=== PATIENT | female | born 2005 | race Caucasian/White ===

== ENCOUNTER → 2024-08-18 | Outpatient (CLI) | payer MEDICAID, SELFPAY ==
--- NOTE | 2024-08-18 17:36 | CT_ITS ---
PROCEDURE: ABDOMEN/PELVIS WITH CONTRAST REASON FOR EXAM: LOWER ABDOMEN PAIN. Sharp abdominal pain. Vaginal bleeding. TECHNIQUE: Abdomen and pelvis CT with intravenous contrast. Oral contrast was also used. IV CONTRAST: 100 cc of [id number]. COMPARISON: None. FINDINGS: Lung bases: Clear Liver: Unremarkable. Gallbladder: Unremarkable. Spleen: Unremarkable. Pancreas: Unremarkable. Adrenals: Unremarkable. Kidneys: Unremarkable. Bladder: Unremarkable. Reproductive Organs: There is a 6.6 cm x 6.9 cm x 5.5 cm cystic mass in the left adnexa. Low-level density are seen along the dependent portion. This may represent blood. Endometrioma should be ruled out. Pelvic sonogram correlation recommended. Small amount of free fluid in the cul-de-sac. Bowel: Unremarkable. Appendix: Normal. Lymph nodes: No suspicious lymph node enlargement. Vasculature: Major vascular structures are unremarkable. Peritoneum / Retroperitoneum: No ascites. No free air. Bones: Unremarkable. CT/Abdomen/Pelvis WITH Contrast IMPRESSION: 6.6 cm x 6.9 cm x 5.5 cm cystic mass in the left adnexa with low-level densitie s along the dependent portion. This is suggestive of possible endometrioma. Sonographic correlation recommended. Small amount of free fluid is seen in the cul-de-sac. One or more dose reduction techniques were used (e.g., Automated exposure contr ol, adjustment of the mA and/or kV according to patient size, use of iterative reconstruction technique). Reading Location: [place] [id number]
== END | disposition home or self-care (01) ==
LOC: CT 17:34
DX: R10.30 Lower abdominal pain, unspecified (principal)
CPT/HCPCS: 74177; Q9967

== ENCOUNTER 2024-09-01 14:19 | Emergency (ER) | payer MEDICAID, SELFPAY ==
[2024-09-01 14:20] VITALS: BP 117/71; PULSE 93; RESP 17; TEMP 36.4; O2SAT 100; BMI 18.4
--- NOTE | 2024-09-01 14:51 | US_ITS ---
PROCEDURE: PELVIC (NON ) 09/01/2024 REASON FOR EXAM: 19-year-old female, r/O OVARIAN TORSION TECHNIQUE: Transabdominal pelvic ultrasound. Color doppler analysis of the ovaries. COMPARISON: CT abdomen pelvis 08/18/2024. FINDINGS: Measurements: Uterus: 9.6 x 4.1 x 4.0 cm with a volume of 82 mL Endometrial Thickness: 1.0 cm Right Ovary: 3.0 x 2.2 x 3.1 cm with a volume of 10.7 mL. Left Ovary: 8.7 x 7.0 x 7.4 cm with a volume of 236 mL. TRANSABDOMINAL: Uterus: Normal size, myometrial echotexture, and contour. Endometrium: Unremarkable. Right ovary: Normal size and echotexture. Left ovary: Large, complex layering cyst measuring 6.7 x 5.8 x 5.2 cm with small area of anechogenicity. No large pelvic mass identified. Trace free pelvic fluid, within physiologic normal limits. DOPPLER: Color Doppler: Normal color flow doppler signal at both ovaries. US/Pelvic (Non ) IMPRESSION: 1. No ultrasound evidence of ovarian torsion. 2. Stable large complex left ovarian lesion, most compatible with endometrioma. Additional considerations include hemorrhagic cyst or corpus luteum. Consultation with outpatient gynecology is recommended. Reading Location: [id number]
--- NOTE | 2024-09-01 14:51 | CT_ITS ---
EXAM: CT abdomen/pelvis without IV contrast dated September 01, 2024. CLINICAL HISTORY: Abdominal pain. COMPARISON: CT of the abdomen and pelvis dated 08/18/2024. TECHNIQUE: CT of the abdomen and pelvis was performed after IV contrast was administered. Multiplanar reformats were obtained afterwards. FINDINGS: The lung bases are clear. There is no free air within the abdomen and pelvis. The liver, gallbladder, spleen, adrenals, pancreas, kidneys are within normal limits. Urinary bladder demonstrates wall enhancement, which is nonspecific. 6.3 x 6.8 cm left adnexa cystic structure is noted. Since prior examination. There has been increase in the amount of complex free fluid within the deep pelvis. The fluid now extends posteriorly into the cul-de-sac and presacral area. This is best seen on image 100/130. Extensive sigmoid diverticulosis is noted, which is somewhat advanced for patient's age. A normal appendix is not identified. No acute osseous abnormalities are present. CT/Abdomen/Pelvis W IV Cont ONLY IMPRESSION: Large complex free fluid is now seen within the deep pelvis. This is significa ntly increased in size when compared to prior examination dating back to August 18 2024. These findings could represent rec ently ruptured cyst versus ruptured appendix versus other etiologies. Recommend OBGYN and general surgery consultation. Co rrelation with beta HCG, WBC on other laboratory analysis is also suggested. Advanced diverticular disease. Diverticulitis with associated peridiverticular abscess can not be ruled out. Left adnexa complex cyst remains. Other findings as above. Reading Location: [id number]
--- NOTE | 2024-09-01 14:52 | EX.ED.DYSGE1 ---
HPI History of Present Illness Chief Complaint: Abd Pain Narrative Narrative: Chief complaint and HPI: Abdominal pain. 19-year-old female with no significant past medical history presents for evaluation of abdominal pain. Patient states earlier this month she was having abdominal pain. She states she had a CT abdomen pelvis that showed a left ovarian cyst. She is scheduled to see [facility] at [facility] in October. Patient states her pain improved but over the last 2 days has worsened. She describes it as diffuse. Associated symptom is nausea. She denies any fever, chills, chest pain, shortness of breath, emesis, dysuria, urinary frequency, diarrhea, constipation. Patient states she is not sexually active. Her last menstrual cycle was 2 weeks ago. Patient states that they called the [facility] office and they told her to present to the emergency department. Patient states that bumps on the ride over here worsened the pain. Patient last ate yesterday. Review of systems: See HPI Medications: As listed on the chart Allergies: As listed on the chart PFSH: Per chart Vital signs: As listed on the chart. Reviewed. Physical exam: Gen: A&O x3, NAD Head: Normocephalic, atraumatic Eyes: No sclera icterus, conjunctiva clear ENT: Moist mucous membranes Neck: Trachea midline, No JVD CV: RRR, no murmurs, no peripheral edema Resp: Lungs CTA BL, no w/r/c GI: Abd soft, non-distended, tender to palpation in the right lower quadrant, + McBurney's point, mild tenderness in the suprapubic region, no rebound or rigidity : No CVA tenderness Musc: Full ROM, no deformity Skin: Warm, dry Neuro: Alert, oriented, grossly intact, sensation intact Psych: Cooperative, appropriate mood and affect [facility] Medical History GERD (gastroesophageal reflux disease) GI problem Emotional problems Back problem Anemia Allergies Home Medications ?Medication ?Instructions ?Recorded ?Last Taken ?Type biotin 800 mcg tablet 800 mcg PO QDAY 05/13/24 Unknown History hydroxyzine HCl 25 mg tablet 25 mg PO BID PRN anxiety #30 tabs 05/13/24 Unknown Rx escitalopram oxalate 10 mg tablet 10 mg PO DAILY #90 tabs 09/01/24 Unknown Rx Allergy/AdvReac Type Severity Reaction Status Date / Time Penicillins Allergy Mild Rash Verified 09/01/24 14:59 Family History Other Anemia Anxiety Arthritis Asthma Colon cancer Depression Diabetes Hypertension Mental disorder Severe allergy Surgical History Hx of breast biopsy Social History Smoking Status: Never smoker alcohol intake: never substance use type: does not use what type of physical activity do you participate in: other details: dance 4days a week EXAM Physical Exam Const Vital Signs: 09/01/24 14:20 09/01/24 16:19 09/01/24 18:41 Temperature 97.5 F L Temperature Source Temporal Pulse Rate 93 80 86 Respiratory Rate 17 16 16 Blood Pressure 117/71 108/59 L 105/58 L Blood Pressure Mean 86 75 73 Pulse Ox 100 100 99 Oxygen Delivery Method Room Air Room Air Room Air 09/01/24 18:41 Temperature 97.4 F L Temperature Source Pulse Rate 86 Respiratory Rate 16 Blood Pressure 105/58 L Blood Pressure Mean 73 Pulse Ox 99 Oxygen Delivery Method MDM MDM MDM Narrative Medical decision making narrative: 19-year-old female with no significant past medical history presents for evaluation of abdominal pain. Differential diagnosis includes but is not limited to acute appendicitis, ovarian torsion, UTI, viral illness, pancreatitis, constipation. On chart review, patient had a CT abdomen pelvis on 08/18. She had a 6 x 6 x 5 cm cystic mass in the left adnexa suggestive of possible endometrioma. NS bolus, morphine, Zofran ordered for symptoms. Laboratory workup ordered including CT abdomen pelvis as well as pelvic ultrasound to assess for ovarian torsion. CBC without leukocytosis or anemia. CMP unremarkable without ALDO, transaminitis. Lipase unremarkable. Serum negative. UA negative for UTI. Ultrasound negative for ovarian torsion. Patient has stable large complex left ovarian cyst, most compatible with endometrioma. CT abdomen pelvis shows large complex free fluid now seen within the deep pelvis. Significantly increased in size when compared to prior examination. Findings could represent recently ruptured cyst versus ruptured appendix. Appendix is not identified. There is extensive sigmoid diverticulosis. Given CT abdomen pelvis findings and patient being tender in the right lower quadrant on physical exam, general surgery Dr. Bravo was consulted. He will review the imaging and asked me to discuss the case with [facility]. I spoke with [facility] dye automation operator and she recommends me talking to the attending, Dr. Mancilla. While waiting for Dr. Mancilla. Dr. Bravo call back. He reviewed the imaging. Suspect likely cyst rupture given her history of large left adnexal cyst. Although appendix not seen, appendix was normal on previous CT abdomen and pelvis. Patient's labs are not consistent with acute appendicitis. He recommends me reaching out to [facility]. If [facility] does not feel that this is cystic in nature, recommends repeat CT abdomen pelvis with p.o. contrast to better visualize the appendix. I spoke with Dr. Mancilla. I informed him of the recommendations and opinion of Dr. Bravo. He states that if the appendix does not appear to be the source by general surgery, he agrees that this could be cystic in nature. Plan is for patient to call [facility] tomorrow to be seen in the office next week. On reexamination, patient's pain is improved however she is shirring tender in the right lower quadrant. I explained all the findings to the patient as well as her mother. I informed them of Dr. Bravo and Dr. Mancilla's recommendations. Patient and mother comfortable with discharging home. Tylenol and Motrin as needed for pain. Strict return precautions. Impression: 1. Abdominal pain 2. Left adnexa cystic mass, suggestive of endometrioma Lab Data Labs: Laboratory Results - last 24 hr 09/01/24 09/01/24 14:54 16:14 WBC 9.1 RBC 3.92 L Hgb 12.2 Hct 35.0 L MCV 89.3 MCH 31.1 MCHC 34.9 RDW Std Deviation 37.9 RDW Coeff of Krysten 11.7 Plt Count 229 MPV 9.2 Immature Gran % (Auto) 0.200 Neut % (Auto) 78.5 H Lymph % (Auto) 12.4 L [place] % (Auto) 8.2 Eos % (Auto) 0.5 Baso % (Auto) 0.2 Absolute Neuts (auto) 7.2 Absolute Lymphs (auto) 1.13 Nucleated RBC % 0 Sodium 137 Potassium 3.6 Chloride 106 Carbon Dioxide 21.4 Anion Gap 10 BUN 6 Creatinine 0.50 L Estim Creat Clear Calc 164.09 Est GFR (MDRD) Non-Af 137 BUN/Creatinine Ratio 13.0 Glucose 96 Calcium 8.6 Total Bilirubin 1.18 AST 21 ALT 10 Alkaline Phosphatase 59 Total Protein 7.1 Albumin 4.2 Globulin 2.9 Albumin/Globulin Ratio 1.4 Lipase 14 Serum , Qual NEGATIVE Urine Color Yellow Urine Clarity Clear Urine pH 6.5 Ur Specific [place] 1.010 Urine Protein 15 H Urine Glucose (UA) Normal Urine Ketones 5 H Urine Occult Blood 10 H Urine Nitrite Negative Urine Bilirubin Negative Urine Urobilinogen Normal Ur Leukocyte Esterase Negative Urine RBC 0-5 SEEN Urine WBC 0-5 SEEN Ur Squamous Epith Cells 0-5 SEEN Urine Bacteria 1+ Urine Mucus 0 SEEN Radiography Diagnostic Testing: Clinical Impression(s) from Imaging Studies Abdomen/Pelvis CT 09/01/24 14:51 IMPRESSION: Large complex free fluid is now seen within the deep pelvis. This is significantly increased in size when compared to prior examination dating back to August 18 2024. These findings could represent recently ruptured cyst versus ruptured appendix versus other etiologies. Recommend OBGYN and general surgery consultation. Correlation with beta HCG, WBC on other laboratory analysis is also suggested. Advanced diverticular disease. Diverticulitis with associated peridiverticular abscess can not be ruled out. Left adnexa complex cyst remains. Other findings as above. Reading Location: [facility] Pelvis Ultrasound 09/01/24 14:51 IMPRESSION: 1. No ultrasound evidence of ovarian torsion. 2. Stable large complex left ovarian lesion, most compatible with endometrioma. Additional considerations include hemorrhagic cyst or corpus luteum. Consultation with outpatient gynecology is recommended. Reading Location: [facility] Discharge Plan Triage Chief Complaint: Abd Pain ED Provider: Abebe Montgomery Dx/Rx/DC Orders Clinical Impression: Abdominal pain Instructions: ED Abdominal Pain Unkn Cause Fem Prescriptions: No Action biotin 800 mcg tablet 800 mcg PO QDAY hydroxyzine HCl 25 mg tablet 25 mg PO BID PRN (Reason: anxiety) Qty: 30 0RF escitalopram oxalate 10 mg tablet 10 mg PO DAILY Qty: 90 1RF Primary Care Provider: Radha Lawson Referrals: Too Mancilla MD [Med Staff - Active Staff] - 3-5 Days Radha Lawson PA [Primary Care Provider] - 3-5 Days Activity Restrictions/Additional Instructions: Return back to the ED if symptoms change or worsen. Follow-up with [facility]. Call the office tomorrow and let them know that you need to be seen either later this week or early next week. Tylenol and Motrin as needed for pain. Print Language: Serbian Disposition Disposition: Home, Self Care Discharge Date/Time: 09/01/24 19:00
[2024-09-01] MEDS: 0.9% Normal Saline (1000mL) 1,000 ML 999 ML IV (15:04)
[2024-09-01] MEDS: Morphine 2 MG/ML Syringe IV (15:04)
[2024-09-01] MEDS: Ondansetron 4 MG/2 ML Vial IV (15:04)
[2024-09-01 15:15] LABS: Absolute Lymphocyte Count 1.13 X10^3/uL (0.83-4.51); Absolute Neutrophil Count 7.2 X10^3/uL (2.0-7.7); Basophil# 0.02 X10^3/uL; Basophil% 0.2 % (0-1); Eosinophil# 0.05 X10^3/uL; Eosinophils% 0.5 % (0-5); Hemoglobin 12.2 g/dL (12.0-15.0); Lymphocyte # 1.13 X10^3/ul (0.83-4.51); Lymphocyte % 12.4 % (19-41); Mean Corp Hgb Conc 34.9 g/dL (32-36); Mean Corpuscular Hgb 31.1 pg (27.0-32.0); Mean Corpuscular Volume 89.3 fL (81-99); Mean Platelet Vol. 9.2 fl (6.2-12.0); Monocyte# 0.75 X10^3/uL; Monocyte% 8.2 % (0-10); NRBC Flagged by Analyzer 0 % (0-5); Neutrophil # 7.16 X10^3/uL (2.7-7.7); Neutrophil % 78.5 % (47-70); Platelet Count 229 K/mm3 (150-450); RBC Distribution Width CV 11.7 % (11.6-14.6); RBC Distribution Width SD 37.9 fl (35.1-43.9); Red Blood Count 3.92 M/mm3 (4.2-5.4); White Blood Count 9.1 K/mm3 (4.4-11.0)
[2024-09-01 15:44] LABS: Lipase 14 U/L (13-75)
[2024-09-01 16:09] LABS: Internal QC Validated? YES +Cl - CLEAR BKGD; Pregnancy, Serum, hCG Quali. NEGATIVE Negative
[2024-09-01 16:10] LABS: ALB/GLOB Ratio 1.4 RATIO (0.9-2.4); AST(SGOT) 21 U/L (<=31); Alanine Aminotransfer ALT/SGPT 10 U/L (<=34); Albumin, Serum 4.2 g/dL (3.5-5.0); Alkaline Phosphatase 59 U/L (35-104); Anion Gap 10 (5-15); Calcium,Total 8.6 mg/dL (7.6-11.0); Carbon Dioxide 21.4 mmol/L (21.0-32.0); Chloride 106 mmol/L (98-108); EST Glomerular Filtration Rate 137 (>60); Estimated Creatinine Clearance 164.09 ml/min (50-250); Globulin 2.9 g/dL (2.2-4.2); Glucose 96 mg/dL (70-99); Potassium 3.6 mmol/L (3.3-5.1); Protein, Total 7.1 g/dL (5.9-8.4); Sodium Level 137 mmol/L (133-145); Total Bilirubin 1.18 mg/dL (0.00-1.30)
[2024-09-01 16:19] VITALS: BP 108/59; PULSE 80; RESP 16; O2SAT 100
[2024-09-01 16:24] LABS: BUN 6 mg/dL (4-19)
[2024-09-01 16:34] LABS: Mucous, Urine 0 SEEN /hpf (<or=2+)
[2024-09-01 16:41] LABS: Color, Urine Yellow (Yellow); Glucose, Dipstick Normal (Normal); Ketone-Dipstick 5 mg/dl (Negative); Leukocyte Esterase-Dipstick Negative /ul (Negative); Nitrite-Dipstick Negative (Negative); Occult Blood-Urine 10 /ul (Negative); Protein-Dipstick 15 mg/dl (Negative); Urine Bilirubin Dipstick Negative (Negative); Urine Clarity Clear (Clear); Urine Urobilinogen Normal (Normal); Urine pH 6.5 (5.0 - 8.0)
[2024-09-01 16:47] LABS: Bacteria 1+ /hpf (None Seen); Red Blood Cells-Urine 0-5 SEEN /hpf (0-5); Squamous Epithelial Cells - UA 0-5 SEEN /hpf (5-10); White Blood Cells 0-5 SEEN /hpf (0-5)
[2024-09-01 18:41] VITALS: BP 105/58; PULSE 86; RESP 16; TEMP 36.3; O2SAT 99
== END 2024-09-01 19:00 | disposition home or self-care (01) ==
PROVIDERS: Emergency Provider Surgery; Visit Provider Surgery
DX: R10.9 Unspecified abdominal pain (principal)
CPT/HCPCS: 74177; 76856; 80053; 81001; 83690; 84703; 85025; 96361; 96374; 96375; 96376; 99283; Q9967; J2405

== ENCOUNTER → 2024-09-10 | Outpatient (CLI) | payer MEDICAID, SELFPAY ==
[2024-09-16 08:06] LABS: HPV Reflexed? NOT INDICATED
== END | disposition home or self-care (01) ==
LOC: LABSPEC 16:44
PROVIDERS: Referring Provider Obstetrics & Gynecology; Visit Provider Obstetrics & Gynecology
DX: Z12.4 Encounter for screening for malignant neoplasm of cervix (principal)
CPT/HCPCS: 88175; G0145

== ENCOUNTER → 2024-09-14 | Outpatient (CLI) | payer MEDICAID, SELFPAY ==
--- NOTE | 2024-09-14 13:09 | US_ITS ---
PROCEDURE: Pelvic ultrasound, transabdominal only 09/14/2024 REASON FOR EXAM: Follow-up left ovarian cyst TECHNIQUE: Transabdominal ultrasound evaluation of the female pelvis. COMPARISON: CT abdomen/pelvis and pelvic ultrasound 09/01/2024. FINDINGS: Included portions of the urinary bladder show no specific abnormality. The uterus appears anteverted measuring 9.6 x 4.1 x 4.0 cm. No discrete uterine myometrial or cervical mass is demonstrated. The endometrium is measured at 1.1 cm in thickness. The right ovary is 3.0 x 2.2 x 3.1 cm minimally complex 2 cm right ovarian follicle. There is blood flow in the right ovary on Doppler evaluation. The left ovary is measured at 6.5 x 7.5 x 7.3 cm. Within the left ovary is a complex cystic mass measuring up to 6.4 cm. There appears to be blood flow at the periphery of the left ovary. US/Pelvic (Non ) IMPRESSION: Complex 6.4 cm cystic mass of the left ovary is not significantly changed in si ze from the 09/01/2024 study. Differential possibilities would include an endometrioma or complex hemorrhagic cyst. Malig davon or neoplasm would be difficult to entirely exclude. Nonemergent surgical consultation is suggested. No free pelvic fluid. 2 cm right ovarian follicle. No evidence of ovarian torsion. Unremarkable sonographic appearance of the uterus. Reading Location[facility]
== END | disposition home or self-care (01) ==
LOC: US 13:07
PROVIDERS: Referring Provider Obstetrics & Gynecology; Visit Provider Obstetrics & Gynecology
DX: N83.209 Unspecified ovarian cyst, unspecified side (principal)
CPT/HCPCS: 76856

== ENCOUNTER → 2024-11-04 | Outpatient (CLI) | payer MEDICAID, SELFPAY ==
--- NOTE | 2024-11-04 16:39 | US_ITS ---
PROCEDURE: PELVIC (NON ) 11/04/2024 REASON FOR EXAM: MONITOR ENDOMETRIOMA TECHNIQUE: Transabdominal pelvic ultrasound COMPARISON: Prior study dated September 14, 2024. FINDINGS: LMP: October 14, 2024. Measurements: Uterus: 7.5 cm x 6 cm x 4.1 cm with a volume of 96.77 mL Endometrial Thickness: 12.3 mm. It is hyperechoic. Right Ovary: 2.9 cm x 2.4 cm x 1.3 cm with a volume of 4.61 mL. Left Ovary: There is an 8.1 cm 5.7 cm 5.8 cm complex solid and cystic mass in the left adnexa as previously seen. This has increased in size as compared to prior study. Uterus: Normal size, myometrial echotexture, and contour. Endometrium: Unremarkable. Right ovary: Normal size and echotexture. Left ovary: Increase in size of the previously seen complex mass in the left adnexa as described. Other: Small amount of free fluid in the cul-de-sac. US/Pelvic (Non ) IMPRESSION: Increase in size of the complex cystic mass in the left adnexa as described. Reading Location: [facility]
== END | disposition home or self-care (01) ==
LOC: US 16:08
PROVIDERS: Referring Provider Obstetrics & Gynecology; Visit Provider Obstetrics & Gynecology
DX: N80.129 Deep endometriosis of ovary, unspecified ovary (principal)
CPT/HCPCS: 76856

== ENCOUNTER → 2024-12-30 | Outpatient (CLI) | payer MEDICAID, SELFPAY ==
--- NOTE | 2024-12-30 13:04 | US_ITS ---
PROCEDURE: PELVIC (NON ) 12/30/2024 REASON FOR EXAM: LEFT OVARIAN CYST TECHNIQUE: PELVIC (NON ). Transabdominal grayscale, color and spectral Doppler pelvic ultrasound. COMPARISON: 11/04/2024 FINDINGS: ENDOMETRIUM: Homogeneous. Normal thickness of 11.2 mm. No abnormal endometrial color Doppler flow. UTERUS: Anteverted. Normal size and contour measuring 7.3 x 5.3 x 3.7 cm. No fibroid detected. CERVIX: Normal size and contour. RIGHT OVARY: Enlarged measuring 6.4 x 4.8 x 5.1 cm with a volume of 80.4 mL. Nonvascular complex cystic structure measuring 5.3 x 4.2 x 4.3 cm with internal echoes. Normal blood flow. No adnexal mass. LEFT OVARY: A normal ovary is not seen. Cystic left adnexal structure measuring 11.1 x 8.8 x 9.5 cm with homogeneous low-level internal echoes. This previously measured 5.7 x 8.1 x 5.8 cm. FREE FLUID: No free fluid. US/Pelvic (Non ) IMPRESSION: 1. Interval enlargement of the now 11.1 cm complex left adnexal cystic lesion, likely a hemorrhagic cyst or endometrioma. O-RADS US 3 - Low risk malignancy (1 to <10% risk of malignancy). Ultrasound s pecialist or MRI and management by heat treater helper recommended.. 2. Complex 5.3 cm right ovarian cyst, likely a hemorrhagic cyst, new since the prior study. O-RADS US 2 - Almost certainly benign category (<1% risk of malignancy). Follow-up imaging in 8-12 weeks is r ecommended to evaluate for resolution. Reading Location: [id number]
== END | disposition home or self-care (01) ==
LOC: US 12:59
PROVIDERS: Referring Provider Obstetrics & Gynecology; Visit Provider Obstetrics & Gynecology
DX: N83.202 Unspecified ovarian cyst, left side (principal)
CPT/HCPCS: 76856

== ENCOUNTER 2025-01-05 13:05 | Emergency (ER) | payer MEDICAID, SELFPAY ==
[2025-01-05 13:06] VITALS: BP 104/68; PULSE 89; RESP 16; TEMP 37; O2SAT 98; BMI 18.4
--- NOTE | 2025-01-05 13:35 | US_ITS ---
PROCEDURE: PELVIC (NON ) 01/05/2025 REASON FOR EXAM: HISTORY OF LARGE OVARIAN CYST, LEFT TECHNIQUE: PELVIC (NON ) COMPARISON: January 01, 2025. FINDINGS: LMP: January 05, 2025. Measurements: Uterus: 7.5 cm x 3.6 cm x 3.9 cm with a volume of 54 point 15 mL Endometrial Thickness: 6.7 mm. It is hyperechoic. Right Ovary: 4.5 cm x 3 cm x 3.7 cm with a volume of 25.23 mL. Left Ovary: 10.6 cm x 9.2 cm x 9.6 cm with a volume of 489.90 mL. Uterus: Normal size, myometrial echotexture, and contour. Endometrium: Unremarkable. Right ovary: There is a 3.3 cm 2.5 cm 3.3 cm right ovarian cyst. Left ovary: Persistent 9.8 cm x 8.7 cm 9 cm complex cyst with a fluid level in the left ovary. This may represent either hemorrhagic cyst or endometrioma. Other: Doppler flow is seen in both ovaries. US/Pelvic (Non ) IMPRESSION: Persistent 9.8 cm x 8.7 cm by 9 cm complex cyst suggestive of either hemorrhagi c cyst or endometrioma in the left ovary. Small right ovarian cyst. Reading Location: [facility]
--- NOTE | 2025-01-05 13:36 | EX.ED.DYSGE1 ---
HPI History of Present Illness Chief Complaint: Abd Pain Narrative Narrative: 19-year-old female history of known 11 cm left ovarian cyst and an ovarian cyst on her right ovary presents with pelvic pain. She states that she was post have an appointment with the ENVIRONMENTAL PROJECTS ADVISOR at [facility] today to see about scheduling a surgery. She started her menses today. It is regular flow. However, she is having increasing pelvic pain. She states that the medication she was given, naproxen, is ineffective in treating her pain. She last took it an hour ago. She is having increasing pain but denies any exacerbating or alleviating factors other than it is better when she stands still. [facility] Medical History GERD (gastroesophageal reflux disease) GI problem Emotional problems Back problem Anemia Allergies Home Medications ?Medication ?Instructions ?Recorded ?Last Taken ?Type biotin 800 mcg tablet 800 mcg PO QDAY 05/13/24 01/04/25 History naproxen 500 mg tablet 500 mg PO BID PRN pain #30 tabs 09/10/24 01/05/25 Rx escitalopram oxalate 10 mg tablet 10 mg PO DAILY #90 tabs 12/02/24 01/04/25 Rx hydroxyzine HCl 25 mg tablet 25 mg PO BID PRN anxiety #30 tabs 12/02/24 Unknown Rx oxycodone-acetaminophen 5 mg-325 1 tab PO Q6H 3 days #12 tabs 01/05/25 Unknown Rx mg tablet (Percocet) Allergy/AdvReac Type Severity Reaction Status Date / Time Penicillins Allergy Mild Rash Verified 01/05/25 13:08 Surgical History Hx of breast biopsy Social History Smoking Status: Never smoker alcohol intake: current details: occasionally substance use type: does not use caffeine: Yes what type of physical activity do you participate in: other details: dance 4days a week frequency: 1-2 times per week seatbelt use: always do you feel safe at home: Yes additional social history: Single ROS ROS ED ROS Narrative Review of systems positive for pelvic pain, left greater than right. History of ovarian cysts, the larger being 11 cm on the left. No fevers or chills, no nausea or vomiting. Positive vaginal bleeding consistent with menses today, no vaginal discharge. Not sexually active. EXAM Physical Exam Narrative Exam Narrative: Afebrile. Vital signs noted. Nontoxic-appearing. Cardiovascular examination reveals regular rate and rhythm. Lungs are clear to auscultation bilaterally. Abdomen is soft, mild tenderness bilateral lower quadrants left greater than right more towards pelvis., with positive bowel sounds. No guarding or rebound. Neurological examination is nonfocal, nonlateralizing. Const Vital Signs: 01/05/25 13:06 01/05/25 15:05 Temperature 98.6 F Temperature Source Oral Pulse Rate 89 69 Respiratory Rate 16 18 Blood Pressure 104/68 Blood Pressure Mean 80 Pulse Ox 98 98 Oxygen Delivery Method Room Air Room Air MDM MDM MDM Narrative Medical decision making narrative: The differential diagnosis includes but not limited to menstrual cramping versus ovarian cyst rupture versus ovarian torsion given the size of her reported left ovarian cyst versus ectopic . Comprehensive workup was pursued. I will obtain a CBC given her vaginal bleeding to make sure she is not anemic. I do feel a transvaginal ultrasound is indicated. She and her mother states that she did not do well with transvaginal ultrasound, but they were told that in order to rule out torsion, this would be the best imaging modality. She was administered morphine for analgesia. I reviewed her laboratory work and her serum test is negative, CBC shows hemoglobin stable at 11.8 with hematocrit 34.8, platelet count 216. She was unable to tolerate transvaginal ultrasound as she had intolerance in the past. I reviewed the pelvic ultrasound radiology report and she has persistent ovarian cyst measuring at approximately 9 cm and a small right ovarian cyst. Dr. Alvarado had called in and stated that she had reviewed the ultrasound and laboratory work and patient will be scheduled for surgery this coming Saturday, 3 days from now. She requested that she be sent home with narcotic pain medication. Upon repeat examination, patient is feeling improved and using her cellular telephone. I discussed the results with the patient and her mother and currently they are agreeable to discharge. Return instructions to the emergency department were reviewed. Disposition is discharged home in stable condition. History & Record Review Discussion w/independent historian: Patient Additional record(s) reviewed:: Prior ED visit (History of recent ultrasounds, endometrioma versus ovarian cyst) Lab Data Attestation: I reviewed the patient's lab results. Labs: Laboratory Results - last 24 hr 01/05/25 13:54 WBC 8.5 RBC 3.80 L Hgb 11.8 L Hct 34.8 L MCV 91.6 MCH 31.1 MCHC 33.9 RDW Std Deviation 39.6 RDW Coeff of Krysten 11.8 Plt Count 216 MPV 9.3 Immature Gran % (Auto) 0.400 Neut % (Auto) 75.4 H Lymph % (Auto) 17.8 L [place] % (Auto) 5.1 Eos % (Auto) 1.1 Baso % (Auto) 0.2 Absolute Neuts (auto) 6.4 Absolute Lymphs (auto) 1.50 Nucleated RBC % 0 Serum , Qual NEGATIVE Radiography Diagnostic Testing: Clinical Impression(s) from Imaging Studies Pelvis Ultrasound 01/05/25 13:35 IMPRESSION: Persistent 9.8 cm x 8.7 cm by 9 cm complex cyst suggestive of either hemorrhagic cyst or endometrioma in the left ovary. Small right ovarian cyst. Reading Location: [facility] Management Discussion w/another healthcare provider: Drill Punch Operator (Dr. Alvarado had called in and discussed plan with Dr. Silver) Discharge Plan Triage Chief Complaint: Abd Pain ED Provider: Phill Hicks Dx/Rx/DC Orders Clinical Impression: Ovarian cyst, Endometrioma, Pelvic pain Instructions: ED Ovarian Cyst, ED Pelvic Pain, Unknown Cause Prescriptions: New oxycodone-acetaminophen [Percocet] 5-325 mg tablet 1 tab PO Q6H 3 Days Qty: 12 0RF No Action biotin 800 mcg tablet 800 mcg PO QDAY naproxen 500 mg tablet 500 mg PO BID PRN (Reason: pain) Qty: 30 0RF escitalopram oxalate 10 mg tablet 10 mg PO DAILY Qty: 90 1RF hydroxyzine HCl 25 mg tablet 25 mg PO BID PRN (Reason: anxiety) Qty: 30 0RF Primary Care Provider: Radha Lawson Referrals: Minnie Edwards DO [Med Staff - Active Staff] - 01/08/25 Radha Lawson PA [Primary Care Provider] - Activity Restrictions/Additional Instructions: You are being scheduled for surgery on Saturday, January 08. Follow-up with [facility]ON[facility] PROJECTS ADVISOR in the meantime. Continue your pain medications as directed. Return with new or worsening symptoms. Print Language: Pashto Disposition Disposition: Home, Self Care
[2025-01-05 14:09] LABS: Hematocrit 34.8 % (37-47); Hemoglobin 11.8 g/dL (12.0-15.0); Immature Granulocytes Count 0.030 X10^3/uL (0.0-0.0); Mean Corp Hgb Conc 33.9 g/dL (32-36); Mean Corpuscular Volume 91.6 fL (81-99); Mean Platelet Vol. 9.3 fl (6.2-12.0); NRBC Flagged by Analyzer 0 % (0-5); Platelet Count 216 K/mm3 (150-450); RBC Distribution Width CV 11.8 % (11.6-14.6); RBC Distribution Width SD 39.6 fl (35.1-43.9); Red Blood Count 3.80 M/mm3 (4.2-5.4); White Blood Count 8.5 K/mm3 (4.4-11.0)
[2025-01-05 14:29] LABS: Internal QC Validated? YES +Cl - CLEAR BKGD; Pregnancy, Serum, hCG Quali. NEGATIVE Negative; Record Kit Lot#, Serum Preg. 962302
[2025-01-05] MEDS: 0.9% Normal Saline (1000mL) 1,000 ML 999 ML IV (14:32)
[2025-01-05 15:05] VITALS: PULSE 69; RESP 18; O2SAT 98
[2025-01-05 16:05] VITALS: BP 109/64; PULSE 72; RESP 17; TEMP 36.7; O2SAT 100
== END 2025-01-05 16:06 | disposition home or self-care (01) ==
PROVIDERS: Emergency Provider Emergency Medicine; Visit Provider Emergency Medicine
DX: R10.2 Pelvic and perineal pain (principal); N83.201 Unspecified ovarian cyst, right side
CPT/HCPCS: 76856; 84703; 85025; 93976; 96361; 96374; 96376; 99282; A4216

== ENCOUNTER 2025-01-08 10:07 | Day surgery (SDC) | payer MEDICAID, SELFPAY ==
[2025-01-08] VITALS (12 sets, daily range): BP systolic 91–123; BP diastolic 62–79; PULSE 77–120; RESP 14–18; TEMP 36.3–36.4; O2SAT 97–100; BMI 18.3
[2025-01-08] MEDS: Lactated Ringers 1,000 ML 15 ML IV (11:09)
[2025-01-08 11:14] LABS: Hematocrit 31.5 % (37-47); Hemoglobin 10.7 g/dL (12.0-15.0); Mean Corp Hgb Conc 34.0 g/dL (32-36); Mean Corpuscular Volume 91.3 fL (81-99); Mean Platelet Vol. 9.2 fl (6.2-12.0); Platelet Count 201 K/mm3 (150-450); RBC Distribution Width CV 11.6 % (11.6-14.6); RBC Distribution Width SD 38.6 fl (35.1-43.9); Red Blood Count 3.45 M/mm3 (4.2-5.4); White Blood Count 4.6 K/mm3 (4.4-11.0)
[2025-01-08 11:53] LABS: Internal QC Validated? YES +Cl - CLEAR BKGD; Pregnancy, Serum, hCG Quali. NEGATIVE Negative
[2025-01-08 11:54] LABS: Record Kit Lot#, Serum Preg. 0000962302
--- NOTE | 2025-01-08 12:04 | PCM.PRE.AN2 ---
ASA Classification* ASA Classification ASA Classification: 1 Assessment & Plan Anesthesia* Anesthesia Assessment Anesthesia Assessment: Discussed sedation and/or anesthesia options, risks, benefits, and alternatives with patient/parents/legal guardian/POA. Questions invited. The patient/parents/legal guardian/POA seems to understand and agrees to proceed with anesthesia plan. Reviewed the physical assessment, medical history, allergy history and patient home medications list prior to surgery/procedure/anesthetic and documented any changes. Performed airway and anesthesia risk assessments. Anesthesia Type Anesthesia Type: General History Source History Obtained from:: Patient and Chart Anesthesia Focused Assessment* Temperature: 97.3 F Pulse Rate: 77 Blood Pressure: 113/62 Respiratory Rate: 14 Pulse Ox: 100 Oxygen Delivery Method: Room Air Airway Assessment Mouth opens: >3 cm Mallampati Score: I Teeth Condition: Intact Neck Range of motion (ROM): Full ROM Labs Anesthesia Preop lab: CBC WBC 4.6 K/mm3 (4.4-11.0) 01/08/25 10:59 01/08/25 RBC 3.45 M/mm3 (4.2-5.4) L 01/08/25 10:59 01/08/25 Hgb 10.7 g/dL (12.0-15.0) L 01/08/25 10:59 01/08/25 Hct 31.5 % (37-47) L 01/08/25 10:59 01/08/25 Plt Count 201 K/mm3 (150-450) 01/08/25 10:59 01/08/25 CHEMISTRY Potassium 3.6 mmol/L (3.3-5.1) 09/01/24 14:54 09/01/24 Sodium 137 mmol/L (133-145) 09/01/24 14:54 09/01/24 BUN 6 mg/dL (4-19) 09/01/24 14:54 09/01/24 Creatinine 0.50 mg/dL (0.70-1.20) L 09/01/24 14:54 09/01/24 Glucose 96 mg/dL (70-99) 09/01/24 14:54 09/01/24 COAG Pre-Assessment Diagnosis/Proposed Procedure Planned Operative Procedure(s): ROBOTIC BILAT OVARIAN CYSTECOMY, POSS FULG OF ENDOMETRIOSIS Anesthesia History Anesthesia History - client operations manager: Anesthesia History - client operations manager Hx Hospitalization No 01/07/25 10:02 Any Problems With Anesthesia No 01/07/25 10:02 Cholinesterase deficiency No 01/07/25 10:02 You/Your Family Experience No 01/07/25 10:02 fever (hyperthermia) with Relationship Recent Exposure to Contagious No 01/08/25 10:48 Disease Does patient have nerve No 01/07/25 10:02 stimulator Patient instructed to have device shut off --Does patient have Pacemaker No 01/08/25 10:48 or ICD? When Was Last Pacemaker Check QUESTION #4 FULL TEXT: You/Your Family Experience fever (hyperthermia) with Anesthesia Last Oral Intake Last Oral intake: Last Oral Intake NPO since 23:00 01/08/25 10:48 Meds taken in AM with sips of No 01/08/25 10:48 water? Meds patient instructed to take am of surgery PONV PONV - client operations manager: PONV - client operations manager Female Yes 01/07/25 10:02 HX of Motion Sickness No 01/07/25 10:02 HX of N/V After Surgery No 01/07/25 10:02 Non-Smoker Yes 01/07/25 10:02 Duration of Surgery greater No 01/07/25 10:02 than 60 minutes Number of Risk Factors 2 01/07/25 10:02 PONV Score Moderate Risk 01/07/25 10:02 Height & Weight Height & Weight: Anesthesia: Height & Weight Height 5 ft 10 in 01/08/25 10:48 Weight: 58 kg 01/08/25 10:48 Body Mass Index (BMI) 18.3 01/08/25 10:48 Respiratory Assessment Respiratory Assessment - client operations manager: Respiratory Tract Infection Hx - client operations manager Hx Respiratory Tract Infection No 01/07/25 10:02 STOP Sleep Apnea STOP Sleep Apnea - client operations manager: STOP Sleep Apnea - client operations manager Hx Hypertension No 01/07/25 10:02 Hx Sleep Apnea No 01/07/25 10:02 CPAP BIPAP Do you snore loudly (louder No 01/07/25 10:02 than talking or can be heard Do you often feel tired/ No 01/07/25 10:02 fatigued/ sleepy during daytime? Has anyone observed you stop No 01/07/25 10:02 breathing during sleep? STOP Results Negative 01/07/25 10:02 QUESTION #5 FULL TEXT : Do you snore loudly (louder than talking or can be heard through closed doors)? 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 Specify any problems Hx of Preganancy in last 3 N/A 01/07/25 10:02 Months Nurse Filling Out Transfusion NBUCHER 01/07/25 10:02 & Questions: Date: 01/07/25 01/07/25 10:02 Time: 10:03 01/07/25 10:02 Patient unable to answer at this time (ie. confused, unrespo /Reproduction History /Reproductive History - client operations manager: /Reproductive Hx- client operations manager Hx Now No 01/07/25 10:02 Gestational Age (in weeks): EDC: Hx Hx Para Hx Section SAB No 01/07/25 10:02 Active Medications Active Medications: Current Medications Generic Name Dose Route Start Last Admin Trade Name Makq PRN Reason Stop Dose Admin Lactated Ringer's 1,000 mls @ 15 mls/hr 01/08/25 10:30 01/08/25 11:09 IV 15 mls/hr .Q48H JOAQUIN Administration PFSH Medical History Preop testing Wears glasses Migraine headache Chest pain Non-smoker GERD (gastroesophageal reflux disease) GI problem Emotional problems Back problem Anemia Allergies Home Medications ?Medication ?Instructions ?Recorded ?Last Taken ?Type biotin 800 mcg tablet 800 mcg PO QDAY 05/13/24 01/04/25 History escitalopram oxalate 10 mg tablet 10 mg PO DAILY #90 tabs 12/02/24 01/04/25 Rx hydroxyzine HCl 25 mg tablet 25 mg PO BID PRN anxiety #30 tabs 12/02/24 Unknown Rx oxycodone-acetaminophen 5 mg-325 1 tab PO Q6H 3 days #12 tabs 01/05/25 Unknown Rx mg tablet (Percocet) Allergy/AdvReac Type Severity Reaction Status Date / Time Penicillins Allergy Mild Rash Verified 01/08/25 10:47 Surgical History Hx of breast biopsy Social History Smoking Status: Never smoker alcohol intake: current details: occasionally substance use type: does not use caffeine: Yes what type of physical activity do you participate in: other details: dance 4days a week frequency: 1-2 times per week seatbelt use: always do you feel safe at home: Yes additional social history: Single Review of Systems (Anesthesia) ROS Narrative System reviewed and no additional complaints, except as documented.
--- NOTE | 2025-01-08 12:15 | CYST_PTH ---
PATIENT: CULLEN JONES [place] [facility] [id number] AGE/SX: 19/F ROOM: RE01/08/[address]: Dr. Minnie Edwards DO : 2005 BED: DIS: 01/08/2025 SPEC #: [id number] RECD: 01/08/25 16:37 STATUS: THEODORA RESarah #: [id number] JOHNNIE: 01/08/25 12:[address]: Minnie Edwards DEPT: SURGICAL PATHOLOGY RECD BY: Cullen Alex ENTERED: 01/11/25 13:07 SP TYPE: Cyst OTHR DR: MARII Clark Tissues: A - CYST B - CYST Procedures: Surgery Specimen Level V HEADER OPERATION: Robotic bilateral ovarian cystectomy, possible fulguration PRE-OP DIAGNOSIS: Endometrioma TISSUE SUBMITTED: A- Left ovarian cyst wall, B- Right ovarian cyst wall MICROSCOPIC DIAGNOSIS A. Ovary, left, cyst, cystectomy: - Endometrioma. B. Ovary, right, cyst, cystectomy: - Endometrioma. MICROSCOPIC DESCRIPTION Slides are reviewed. GROSS DESCRIPTION Received in 2 formalin containers labeled with the patient's name and date of . Designated as: A. Left ovarian cyst wall is a 14.3 g, 6.9 x 5.1 x 1.3 cm aggregate of irregular, bryant to red, rubbery, wrinkled and somewhat shaggy tissue fragments and clotted blood. Definitive ovarian parenchyma and/or excrescences are not grossly appreciated. The specimen is sectioned and employee's representative sections are submitted in 3 cassettes. B. Right ovarian cyst wall is a 1.2 g, 2.3 x 1.9 x 0.7 cm aggregate of dark red-brown rubbery and shaggy tissue. Definitive ovarian parenchyma and/or excrescences are not grossly appreciated. The specimen is sectioned and entirely submitted in 2 cassettes. PA 01/11/2025 CPT:87828a4
--- NOTE | 2025-01-08 12:27 | PCM.HP.BLA ---
History and Physical Date of Admission: 01/08/25 Intake Vital Signs 09/25/2505:19 11/12/2510:07 11/19/2512:00 12/01/2507:23 12/01/2507:25 Height 5 ft 10 in 5 ft 10 in 5 ft 10 in 5 ft 10 in 5 ft 10 in Weight: 127 lb 6 oz BMI 18.2 BP 96/64 Intake Visit Reasons: Surg Consult L. Adnexal Complex Mass *copay $10 Glass Etcher Required: No Is patient in pain?: No Allergies Penicillins Allergy (Mild, Verified 11/30/24 08:23) Rash Medications ?Medication ?Instructions ?Recorded ?Confirmed ?Type biotin 800 mcg tablet 800 mcg PO QDAY 05/13/24 11/30/24 History hydroxyzine HCl 25 mg tablet 25 mg PO BID PRN anxiety #30 tabs 05/13/24 11/30/24 Rx escitalopram oxalate 10 mg tablet 10 mg PO DAILY #90 tabs 09/01/24 11/30/24 Rx naproxen 500 mg tablet 500 mg PO BID PRN pain #30 tabs 09/10/24 11/30/24 Rx Post menopausal: No Patient : No : No PFSH Medical History GERD (gastroesophageal reflux disease) GI problem Emotional problems Back problem Anemia Allergies Surgical History Hx of breast biopsy Social History Smoking Status: Never smoker alcohol intake: current details: occasionally substance use type: does not use caffeine: Yes what type of physical activity do you participate in: other details: dance 4days a week frequency: 1-2 times per week seatbelt use: always do you feel safe at home: Yes additional social history: Single HPI Surg Consult L. Adnexal Complex Mass *copay $10 Details: CULLEN JONES is a 19 year old G0 who presents for discussion about left endometrioma. The cyst is slightly bigger than first ultrasound. ultrasound shows the following: Measurements: Uterus: 7.5 cm x 6 cm x 4.1 cm with a volume of 96.77 mL Endometrial Thickness: 12.3 mm. It is hyperechoic. Right Ovary: 2.9 cm x 2.4 cm x 1.3 cm with a volume of 4.61 mL. Left Ovary: There is an 8.1 cm 5.7 cm 5.8 cm complex solid and cystic mass in the left adnexa as previously seen. This has increased in size as compared to prior study. Uterus: Normal size, myometrial echotexture, and contour. Endometrium: Unremarkable. Right ovary: Normal size and echotexture. Left ovary: Increase in size of the previously seen complex mass in the left adnexa as described. Other: Small amount of free fluid in the cul-de-sac. US/Pelvic (Non ) IMPRESSION: Increase in size of the complex cystic mass in the left adnexa as described. We discussed trying myfembree and further observation. She does not appear in pain or distress, but is requeting surgery over conervative management at this time. History 0 Elective abortions Hx Para Spontaneous abortions Hx # Term Pregnancies Ectopic pregnancies Hx # Pregnancies Multiple births # of living children ROS Const ROS Unobtainable: All systems reviewed & are unremarkable except as noted in H Resp Resp: Reports system reviewed and no additional complaints, except as documented; Denies cough GI GI: Reports as per HPI Psych Psych: Reports system reviewed and no additional complaints, except as documented Exam Const General: cooperative, healthy appearing, comfortable and no acute distress Resp Effort & Inspection: normal respiratory effort Skin General: no rashes or lesions noted Psych Appearance: grossly normal Speech and Movement: speech and movement normal Coding Level of Care Code Off vis,est,level 4 Diagnoses Endometrioma N80.129 Assessment and Plan Assessment and Plan (1) Endometrioma: Status: Acute Plan: After discussing the patient's diagnosis and treatment plan options, patient wishes to proceed with surgical management. I have discussed with the patient the risks, benefits, and alternatives of the procedure which include but are not limited to risks of anesthesia, bleeding, infection, possible damage to bowel, bladder, or surrounding vasculature which could lead to additional surgery to evaluate any complications. Patient agrees to procedure and wishes to proceed. ACOG/uptodate references given for additional information regarding procedure. plan for laparoscopic left cystectomy, possible fulguration of endometriosis. She understands she may lose the ovary with surgical intervention. Since surgery will be in a month, we will repeat the ultrasound one more time before operating. Orders: Orders Pelvic w/ Transvaginal 1 Month N80.129 - Deep endometriosis of ovary, unspecified ovary
--- NOTE | 2025-01-08 12:50 | DCINST_ITS ---
Discharge Instructions DC O2, CPAP, BIPAP needs Home O2 Discharge instructions: No Dressing / Incision Discharge Activity: Return to Normal Activity, May Not Drive (for two weeks or while taking narcotic pain medications.), May Shower and May Take a Tub Bath (in 7 days) May resume sexual activity in: 1 week Weight Bearing Status: Full weight bearing Dressing / Incision Call your doctor if you observe: Using more than 1 pad per hour, Shortness of breath, Chest pain and Uncontrolled pain Suture Line Care: Avoid Pulling/Pushing and Avoid Pinching/Bending Remove Dressing in: 1 week (if present) Cleanse incision/area with: Soap & Water and Keep Dressing Clean & Dry Follow Up Care Please Follow Up With: Minnie Edwards DO When: Call to make an appointment with your doctor for a follow up incision check in 1-2 weeks. Test Results: Test results from this visit will be discussed in further detail at your follow- up appointment, if applicable. Discharge Plan Admission Primary Reason for Your Visit: laparoscopy for endometriosis Attending Provider: Minnie Edwards Primary Care Provider: Radha Lawson Instructions Print Language: Greenlandic Discharge Orders/Prescriptions Prescriptions: New hydrocodone-acetaminophen 5-325 mg tablet 1 tab PO Q4H PRN (Reason: pain) 7 Days Qty: 20 0RF ibuprofen 800 mg tablet 800 mg PO Q8H PRN (Reason: pain) Qty: 30 0RF Continued biotin 800 mcg tablet 800 mcg PO QDAY escitalopram oxalate 10 mg tablet 10 mg PO DAILY Qty: 90 1RF hydroxyzine HCl 25 mg tablet 25 mg PO BID PRN (Reason: anxiety) Qty: 30 0RF Discontinued oxycodone-acetaminophen [Percocet] 5-325 mg tablet 1 tab PO Q6H 3 Days Qty: 12 0RF Referrals / Follow Up: Radha Lawson PA [Primary Care Provider] - Disposition Disposition (needs filled in before D/C Order can be placed): Home, Self Care
--- NOTE | 2025-01-08 15:35 | OP.PCM_ITS ---
Problems Associated Problem List Diagnoses (1) Endometrioma: (2) Ovarian cyst: (3) Pelvic pain: Procedures Urinary/Genital [id number]: 83799 Laproscopic ablation endometriosis Multi Select Codes Urinary/Genital Urinary/Genital CPT Codes: 43583 Lysis of adhesions, laproscopic, 95788 Laproscopic ablation endometriosis and 57863 Lap procedure Oviduct/Ovary (bilateral ovarian cystectomies ) Operative Report (Standard) Operative Information Date of Procedure: 01/08/25 Pre-Operative Diagnosis: Pelvic pain, bilateral endometriomas Post-Operative Diagnosis: Pelvic pain, bilateral endometriomas, stage IV endometriosis Surgery/Procedure Performed: Robotic bilateral ovarian cystectomies, fulguration of endometriosis, lysis of adhesions gyroscope technician: Yes Machine Preservative Filler: Narinder Lara Tasks completed by trading assistant: Closing, Insert Trochanter, Trocar, Retracting and Other (Irrigation and suction) Additional clerical administrative assistant?: Yes Additional Home Appliance Technician #2: Grady Acosta Tasks completed by clerical administrative assistant #2: Other (Intraoperative consultation and cautery of soft tissue adhesion overlying the bowel.) Additional clerical administrative assistant?: No Type of Anesthesia: General RN Documented Start/Stop Times: Operation Date: 01/08/25 12:15 Case Time Into Pre-Op 01/08/25 10:27 Anesthesia Start 01/08/25 12:45 Into Room 01/08/25 12:45 Out of Pre-Op 01/08/25 12:45 Procedure Start 01/08/25 13:15 Procedure End 01/08/25 15:27 Procedure Start Time: 12:45 Procedure Stop Time: 15:27 Select all DRAINS/GRAFTS/IMPLANTS that apply: None Estimated Blood Loss: 150cc Specimen collected: Yes Description of specimen(s) removed: Bilateral ovarian cyst bolanos Description of surgery: The patient was brought to the operating room, general anesthesia was found to be adequate. She was prepped and draped in the normal sterile fashion her legs were placed in stirrups. a bivalve speculum was used to find the cervix. The single-tooth tenaculum was used to grasp the anterior lip of the cervix. A ZUMI uterine manipulator was inserted into the cervix. Gloves were changed and attention was turned towards the abdomen. Approximately 23 cm above the pubic symphysis in the midline, and after Marcaine injection, a 8 mm incision was made. An 8 mm trocar was inserted through the laparoscope, then inserted into the abdomen under direct visualization using the laparoscope. Good abdominal placement was noted and no complications were appreciated. At 11 cm lateral to the midline on the left and right sides 8 mm accessory ports were placed. The robot was then docked. A large left ovarian mass was first noted as was seen on ultrasound prior to the procedure. Survey of the abdomen showed endometriosis on both ovaries, the serosa of the uterus, overlying the bowel of the descending colon, and the cul-de-sac of the uterus, and on the peritoneal lining of the pelvis up to the level of the liver. There is a small adhesion of the bowel to the left ovary. The left ovary was first grasped with a ProGrasp through the left port site and was opened using electrocautery and sharp dissection with the monopolar scissors. 150 cc of chocolate material was suctioned out of the ovary. The previously noted adhesion from the bowel was carefully removed using electrocautery around the ovary to release the adhesion. When this occurred a blood vessel was noted to be pumping and bleeding from the bowel. Dr. Acosta called to the room and he assessed the situation. He decided that the blood vessel was no longer bleeding and that this appendage was not part of the bowel and was more of a soft tissue adhesion. He cauterized the bleeding vessel for further hemostasis. Next the left ovarian cyst wall was cored out using the vessel sealer device and the ProGrasp cauterizing some of the blood vessels that were bleeding as this procedure took place. Eventually the entire cyst wall was removed the ovary was noted to have some oozing on the inside. Fibrillar was placed inside the ovary and the ovarian incision was sutured shut using 3-0 Vicryl in a running locked fashion. Excellent hemostasis was noted. Suction irrigation was performed and attention was turned towards the right ovary. The right ovary was noted to be markedly smaller than the left however still contained a 5 cm ovarian cyst. This cyst wall was opened in a similar fashion as the left ovary and the ovarian cyst wall was cored out in a similar fashion. Fibrillar was also placed inside the ovary the right ovary was not bleeding and was not sutured. Using the monopolar scissors fulguration of endometriosis was performed of the posterior cul-de-sac on the surface of the left and right ovaries and on the uterosacral ligaments bilaterally. Further irrigation was performed and excellent hemostasis was noted at all operative sites. The cyst bolanos were placed in an Endo Catch bag and removed through the abdomen through the 8 mm port sites. The robot was undocked and the trocars were removed the incisions were closed using a 4-0 Monocryl subcuticular stitch. The ZUMI vaginal manipulator was removed without difficulty. The patient tolerated the procedure well sponge lap and needle counts were correct x 2 and she is now being brought to the recovery room in stable condition Surgical Findings: Stage IV endometriosis (endometriosis on both ovaries, on the uterine serosa, posterior cul-de-sac the peritoneum and the bowel. Complications Complications: No Admit VTE Documentation VTE Present on Admission: Yes VTE Mechan Device Prophylaxis: [facility] VTE Pharm Prophylaxis ordered?: Yes
--- NOTE | 2025-01-08 15:43 | PCM.POST.ANE ---
Anesthesia: Postop Eval I Current Vital Signs Temperature: 97.5 F Pulse Rate: 118 Blood Pressure: 108/78 Respiratory Rate: 18 Pulse Ox: 100 Oxygen Delivery Method: Simple Mask Oxygen Flow Rate (L/min): 6 Assessment Airway patent: Yes Spontaneous unlabored respirations: Yes Mental status: Awake and Calm nausea: No Vomiting: No Anesthesia Complication: No Fluid Hydration Crystalloid volume administer (ml): 1,000 Total IV fluid infused: 1,000 Progress Note Anesthesia document: Postop Eval 1 completed: Yes
== END 2025-01-08 19:32 | disposition home or self-care (01) ==
LOC: SDC 10:09 → AC 10:09
PROVIDERS: Anesthesiology; Referring Provider Obstetrics & Gynecology; Visit Provider Obstetrics & Gynecology
PROC: 0UT90ZZ Resection of Uterus, Open Approach (ICD-10-PCS; CPT 58662; principal; 2025-01-08 11:55)
DX: N80.123 Deep endometriosis of bilateral ovaries (principal); N80.00 Endometriosis of the uterus, unspecified; N80.559 Endometriosis of other parts of the colon, unspecified depth; N80.30 Endometriosis of pelvic peritoneum, unspecified; K66.0 Peritoneal adhesions (postprocedural) (postinfection)
CPT/HCPCS: 58662; S2900; 00840; 84703; 85027; 86850; 86900; 86901; 88304; 88307; A4216; J2405